=== PATIENT | male | born 1940 | race Caucasian/White ===

== ENCOUNTER 2021-04-19 17:18 | Observation (INO) | payer MEDICARE, OTHER ==
[2021-04-19] MEDS ORDERED: Sodium Chloride 0.9% 500 ML 500 ML IV ONE ×2 (17:53→18:29)
--- NOTE | 2021-04-19 17:58 | ERPHSYRPT ---
- History of Present Illness Time Seen by Provider: 04/19/21 17:26 Historian: patient Exam Limitations: no limitations Patient Subjective Stated Complaint: pt here for pain to lower left abd since last night. no fever, no difficlutly with B/B Triage Nursing Assessment: pt walked in, resp easy, skin w/d/p, face mask in place, no edema noted abd large , soft Physician History: 80 years old male presented in the ER with chief complaint of lower abdominal pain sudden onset this morning, across both sides, aggravated with certain position, lasted for couple of hours and then started to improve but still have 3/10 intensity but now more localized in the left lower quadrant. Denies associated nausea vomiting or urinary symptoms. Denies diarrhea. Does have history of bilateral inguinal hernia surgeries. No fever or chills reported. Timing/Duration: today, constant, sudden, improved Activities at Onset: rest Quality: sharpness Abdominal Pain Onset Location: RLQ, LLQ, suprapubic Pain Radiation: no radiation Severity of Pain-Max: moderate Severity of Pain-Current: mild Modifying Factors: Worsens With: movement Associated Symptoms: denies symptoms Previous symptoms: no prior history Allergies/Adverse Reactions: erythromycin base [From Staticin] Adverse Reaction (Verified 04/19/21 17:35) ethyl alcohol [From Staticin] Adverse Reaction (Verified 04/19/21 17:35) Hx Tetanus, Diphtheria Vaccination/Date Given: No Hx Influenza Vaccination/Date Given: Yes Hx Pneumococcal Vaccination/Date Given: Yes Immunizations Up to Date: No Travel Risk - International Travel Have you traveled outside of the country in past 3 weeks: No - Coronavirus Screening Are you exhibiting any of the following symptoms?: No Close contact with a COVID-19 positive Pt in past 14-21 Days: No - Vaccine Status Have you recieved a Covid-19 vaccination: Yes Consulting Practice Manager: Moderna - Vaccination Dates Date of 2cond Vaccination (if applicable): nov - Review of Systems Constitutional: No Symptoms Eyes: No Symptoms Ears, Nose, & Throat: No Symptoms Respiratory: No Symptoms Cardiac: No Symptoms Abdominal/Gastrointestinal: Abdominal Pain Genitourinary Symptoms: No Symptoms Musculoskeletal: No Symptoms Skin: No Symptoms Neurological: No Symptoms Psychological: No Symptoms Endocrine: No Symptoms Hematologic/Lymphatic: No Symptoms Immunological/Allergic: No Symptoms - Past Medical History Pertinent Past Medical History: No Neurological History: No Pertinent History Cardiac History: Arrhythmia, Coronary Artery Disease, High Cholesterol, Hypertension Respiratory History: No Pertinent History Endocrine Medical History: No Pertinent History Musculoskeletal History: Arthritis Other Medical History: Stage 3 kidney disease. 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 - Past Surgical History Past Surgical History: Yes Neuro Surgical History: No Pertinent History Cardiac: Cardiac Catheterization Respiratory: No Pertinent History Gastrointestinal: Cholecystectomy, Hernia Repair Genitourinary: No Pertinent History Musculoskeletal: Other Male Surgical History: No Pertinent History - Social History Smoking Status: Never smoker Exposure to second hand smoke: No Drug Use: none Patient Lives Alone: Yes - Nursing Vital Signs Nursing Vital Signs: Initial Vital Signs Temperature 96.8 F 04/19/21 17:29 Pulse Rate 83 04/19/21 17:29 Respiratory Rate 18 04/19/21 17:29 Blood Pressure 162/78 04/19/21 17:29 O2 Sat by Pulse Oximetry 97 04/19/21 17:29 Pain Scale Pain Intensity 2 - Physical Exam General Appearance: no apparent distress, alert Eye Exam: eyes nml inspection Ears, Nose, Throat Exam: normal ENT inspection, pharynx normal Neck Exam: normal inspection, supple, full range of motion Respiratory Exam: normal breath sounds, lungs clear Cardiovascular Exam: regular rate/rhythm, normal heart sounds Gastrointestinal/Abdomen Exam: soft, normal bowel sounds, tenderness (Left lower quadrant/suprapubic/right lower quadrant with some guarding but no rebound tenderness.) Back Exam: normal inspection, normal range of motion Extremity Exam: normal inspection, normal range of motion Neurologic Exam: alert, oriented x 3, cooperative Skin Exam: normal color SpO2 Interpretation: normal SpO2: 97 O2 Delivery: Room Air Ordered Tests: Active Orders 24 hr Category Date Time Status IV Insertion STAT Care 04/19/21 17:52 Active NPO (ED) STAT Care 04/19/21 17:52 Active ABDOMEN AND PELVIS W CONTRAST [CT] Stat Exams 04/19/21 17:52 Taken CBC W DIFF Stat Lab 04/19/21 18:05 Completed CMP Stat Lab 04/19/21 18:05 Completed LIPASE Stat Lab 04/19/21 18:05 Completed Lactic Acid Stat Lab 04/19/21 18:15 Completed UA W/RFX UR CULTURE Stat Lab 04/19/21 19:25 Received Medication Summary Discontinued Medications Generic Name Dose Route Start Last Admin Trade Name Freq PRN Reason Stop Dose Admin Sodium Chloride 500 mls @ 500 mls/hr 04/19/21 17:53 04/19/21 19:46 Sodium Chloride 0.9% 500 Ml IV 04/19/21 18:52 Infused .Q1H ONE Infusion Sodium Chloride Confirm 04/19/21 18:29 Sodium Chloride 0.9% 500 Ml Administered 04/19/21 18:30 Dose 500 mls @ ud IV .STK-MED ONE Lab/Rad Data: Laboratory Result Diagrams 04/19/21 18:05 04/19/21 18:05 Laboratory Results 04/19/21 04/19/21 04/19/21 Range/Units 18:15 18:05 18:05 WBC 14.7 H (4.0-10.5) K/mm3 RBC 4.62 (4.1-5.6) M/mm3 Hgb 14.2 (12.5-18.0) gm/dl Hct 43.3 (42-50) % MCV 93.7 (78-100) fl MCH 30.7 (26-32) pg MCHC 32.8 (32-36) g/dl RDW 13.2 (11.5-14.0) % Plt Count 210 (150-450) K/mm3 MPV 10.2 (7.5-11.0) fl Gran % 72.0 H (36.0-66.0) % Eos # (Auto) 0.03 (0-0.5) Absolute Lymphs (auto) 2.35 (1.0-4.6) Absolute Monos (auto) 1.70 H (0.0-1.3) Lymphocytes % 16.0 L (24.0-44.0) % Monocytes % 11.6 (0.0-12.0) % Eosinophils % 0.2 (0.00-5.0) % Basophils % 0.2 (0.0-0.4) % Absolute Granulocytes 10.54 H (1.4-6.9) Basophils # 0.03 (0-0.4) Sodium 135 L (137-145) mmol/L Potassium 3.9 (3.5-5.1) mmol/L Chloride 101 (98-107) mmol/L Carbon Dioxide 23 (22-30) mmol/L Anion Gap 14.7 (5-15) MEQ/L BUN 22 H (9-20) mg/dL Creatinine 1.26 H (0.66-1.25) mg/dL Estimated GFR 58.8 ML/MIN Glucose 126 H (74-106) mg/dL Lactic Acid 1.2 (0.4-2.0) Calcium 9.0 (8.4-10.2) mg/dL Total Bilirubin 1.40 H (0.2-1.3) mg/dL AST 32 (17-59) U/L ALT 22 (0-50) U/L Alkaline Phosphatase 70 (38-126) U/L Serum Total Protein 7.3 (6.3-8.2) g/dL Albumin 4.2 (3.5-5.0) g/dL Lipase 75 (23-300) U/L - Progress Progress: improved, re-examined Progress Note: 04/19/21 19:49 80 years old is evaluated for lower abdominal pain. He is offered pain medication which he refused. Given a small fluid bolus, work-up showed white count of 14.7, chronic kidney disease. CT abdomen pelvis with contrast showed moderate proximal sigmoid diverticulitis without any abscess or perforation. Started on Levaquin and Flagyl. Discussed with Dr. Guerra and patient is being admitted. 04/19/21 19:50 Discussed with : Sujit Will see patient in: hospital (observation) Counseled pt/family regarding: lab results, diagnosis, rad results - Departure Departure Disposition: Observation Clinical Impression: Diverticulitis of sigmoid colon Condition: Stable Critical Care Time: No Referrals: SHAZIA BOO [Primary Care Provider] -
[2021-04-19 18:05] LABS: Absolute Neutrophil Ct (ANC) 10.54 (1.4-6.9); BASOPHIL % 0.2 % (0.0-0.4); Basophil (Absolute #) 0.03 (0-0.4); Eosinophil % 0.2 % (0.00-5.0); Eosinophil (Absolute #) 0.03 (0-0.5); Hematocrit 43.3 % (42-50); Hemoglobin 14.2 gm/dl (12.5-18.0); Lymphocyte (Absolute #) 2.35 (1.0-4.6); Mean Cell Volume 93.7 fl (78-100); Mean Corpuscular Hemoglobin 30.7 pg (26-32); Mean Corpuscular Hgb Concent. 32.8 g/dl (32-36); Mean Platelet Volume 10.2 fl (7.5-11.0); Monocytes % 11.6 % (0.0-12.0); Platelet Count 210 K/mm3 (150-450); Red Blood Count 4.62 M/mm3 (4.1-5.6); Red Cell Distribution Width 13.2 % (11.5-14.0); White Blood Count 14.7 K/mm3 (4.0-10.5)
[2021-04-19 18:13] LABS: ALBUMIN 4.2 g/dL (3.5-5.0); ANION GAP 14.7 MEQ/L (5-15); BILIRUBIN,TOTAL 1.4 mg/dL (0.2-1.3); Creatinine 1 1.26 mg/dL (0.66-1.25); EST GLOMERULAR FILTRATION RATE 58.8 ML/MIN; Potassium 3.9 mmol/L (3.5-5.1); Total Protein 7.3 g/dL (6.3-8.2)
[2021-04-19 19:48] LABS: Appearance CLEAR (CLEAR); Bilirubin NEGATIVE (NEGATIVE); Blood NEGATIVE Ery/ul (0-5); Glucose NEGATIVE (NEGATIVE); Ketones NEGATIVE (NEGATIVE); Leukocyte Esterase NEGATIVE (NEGATIVE); Nitrite NEGATIVE (NEGATIVE); Protein,Urine Dip NEGATIVE (Negative); Specific Gravity 1.027 (1.005-1.025); Urobilinogen NEGATIVE mg/dL (0-1)
[2021-04-19] MEDS ORDERED: Levofloxacin 500MG/100ML D5W 500 MG/100 ML BAG IV STA (19:48)
[2021-04-19] MEDS ORDERED: FLAGYL 500 MG IVPB 500 MG/100 ML BAG IV STA (19:48)
[2021-04-19] MEDS ORDERED: Levofloxacin 500MG/100ML D5W 500 MG/100 ML BAG IV ONE (19:54)
[2021-04-19] MEDS ORDERED: FLAGYL 500 MG IVPB 500 MG/100 ML BAG IV ONE (19:54)
[2021-04-19 20:46] LABS: Slide Review 1 YES
[2021-04-19] MEDS ORDERED: MORPHINE SULFATE 2 MG INJ IV PRN (23:54)
[2021-04-19] MEDS ORDERED: DUONEB 0.5-3 MG/3 ml Neb IH PRN (23:54)
[2021-04-19] MEDS ORDERED: TYLENOL 325 MG PO PRN (23:54)
[2021-04-19] MEDS ORDERED: Zofran 4 MG/2 ML VIAL IV PRN (23:54)
[2021-04-20] MEDS: Sodium Chloride 0.9% 1000 ML 1,000 ML IV SCH ×2 (01:29→21:38)
[2021-04-20] MEDS: FLAGYL 500 MG IVPB 500 MG/100 ML BAG IV SCH ×4 (01:30→18:06)
[2021-04-20 05:50] LABS: Absolute Neutrophil Ct (ANC) 6.94 (1.4-6.9); BASOPHIL % 0.1 % (0.0-0.4); Basophil (Absolute #) 0.01 (0-0.4); Eosinophil % 0.6 % (0.00-5.0); Eosinophil (Absolute #) 0.06 (0-0.5); Lymphocyte (Absolute #) 2.04 (1.0-4.6); Lymphocytes % 19.5 % (24.0-44.0); Mean Cell Volume 94.6 fl (78-100); Mean Corpuscular Hemoglobin 30.7 pg (26-32); Mean Corpuscular Hgb Concent. 32.5 g/dl (32-36); Mean Platelet Volume 10.3 fl (7.5-11.0); Monocyte (Absolute #) 1.39 (0.0-1.3); Monocytes % 13.3 % (0.0-12.0); Neutrophil % 66.5 % (36.0-66.0); Platelet Count 197 K/mm3 (150-450); Red Blood Count 4.23 M/mm3 (4.1-5.6); White Blood Count 10.4 K/mm3 (4.0-10.5)
[2021-04-20 06:22] LABS: ALBUMIN 3.6 g/dL (3.5-5.0); ALKALINE PHOSPHATASE 58 U/L (38-126); ANION GAP 12.8 MEQ/L (5-15); BLOOD UREA NITROGEN 19 mg/dL (9-20); CHLORIDE 103 mmol/L (98-107); Calcium 8.5 mg/dL (8.4-10.2); Carbon Dioxide 24 mmol/L (22-30); Creatinine 1 1.21 mg/dL (0.66-1.25); EST GLOMERULAR FILTRATION RATE > 60.0 ML/MIN; Glucose 99 mg/dL (74-106); Potassium 3.5 mmol/L (3.5-5.1); SGOT/AST 24 U/L (17-59); SGPT/ALT 19 U/L (0-50); SODIUM 136 mmol/L (137-145); Total Protein 6.5 g/dL (6.3-8.2)
[2021-04-20] MEDS ORDERED: Nitrostat 0.4 MG Tablet SL PRN (08:18)
[2021-04-20] MEDS ORDERED: MEDICATION INTERVENTION PO SCH (08:45)
--- NOTE | 2021-04-20 08:48 | XRAY ---
Indication: Abdomen pain. Multiple contiguous axial images obtained through the abdomen and pelvis using 80 cc Isovue 370 contrast. Comparison: None Lung bases demonstrates mild bilateral subsegmental atelectasis/scarring and tiny right lower lobe calcified granuloma. No infiltrate or effusion. Heart is not enlarged. Small hiatal hernia. Noncontrasted stomach and bowel loops appear nonobstructed. Normal appendix. Mild diffuse scattered colonic diverticulosis greatest in the descending and sigmoid colon. Proximal sigmoid colon demonstrates mild wall thickening with pericolonic stranding favoring acute diverticulitis. No free fluid/air. Previous cholecystectomy. Mild enlarged prostate gland impresses on the base of the bladder. A few bilateral renal cysts, largest left upper pole measuring 3 cm. Remaining liver, pancreas, spleen, adrenal glands, kidneys, ureters, and bladder are unremarkable. Mild scattered aortoiliac calcifications. No AAA or pathologic retroperitoneal lymphadenopathy. Osseous structures intact with osteopenia, mild/moderate multilevel thoracolumbar degenerative spondylosis, and minimal double curvature scoliosis. T12 segment demonstrates superior/inferior endplate concave deformities either remote fractures versus prominent Schmorl nodes. No ventral or inguinal hernias. Impression: 1. Scattered colonic diverticulosis with mild proximal sigmoid diverticulitis. No complications. 2. Incidental small hiatal hernia, bilateral renal cysts, enlarged prostate gland, and chronic bony findings.
[2021-04-20] MEDS: Ranexa 500 MG PO SCH ×2 (09:34→21:39)
[2021-04-20] MEDS: Vasotec 10 MG PO SCH (09:34)
[2021-04-20] MEDS: Toprol Xl 50 MG PO SCH (09:35)
[2021-04-20] MEDS: Flomax 0.4 MG PO SCH (09:35)
[2021-04-20] MEDS: Imdur 30 MG PO SCH (09:35)
[2021-04-20] MEDS: PROTONIX 40 MG IV IV SCH (09:36)
[2021-04-20] MEDS ORDERED: ENALAPRIL MALEATE 20 MG PO SCH (10:00)
[2021-04-20] MEDS ORDERED: PROPAFENONE HCL 150 MG PO SCH (10:00)
[2021-04-20] MEDS ORDERED: NON-FORMULARY ITEM (Rosuvastatin Calcium [Rosuvastatin Calcium] 5 MG) PO SCH (22:00)
[2021-04-20] MEDS ORDERED: Levofloxacin 500MG/100ML D5W 500 MG/100 ML BAG IV SCH (22:00)
[2021-04-20] MEDS ORDERED: Zocor 10MG PO SCH (22:00)
[2021-04-21] MEDS: FLAGYL 500 MG IVPB 500 MG/100 ML BAG IV SCH ×2 (01:26→05:11)
[2021-04-21 07:17] VITALS: BP 122/54; PULSE 70; O2SAT 96
[2021-04-21] MEDS: Flomax 0.4 MG PO SCH (08:44)
[2021-04-21] MEDS: Toprol Xl 50 MG PO SCH (08:45)
[2021-04-21] MEDS: Imdur 30 MG PO SCH (08:45)
[2021-04-21] MEDS: Ranexa 500 MG PO SCH (08:45)
[2021-04-21] MEDS: Vasotec 10 MG PO SCH (08:45)
[2021-04-21] MEDS: PROTONIX 40 MG IV IV SCH (08:46)
--- NOTE | 2021-04-21 12:08 | PCM.DS ---
Discharge Summary Date of Admission: 04/19/21 23:47 Admitting Physician: JONATHAN WEBER Primary Care Provider: SHAZIA MONTES Allergies Allergies erythromycin base [From Staticin] Adverse Reaction (Verified 04/19/21 17:35) ethyl alcohol [From Staticin] Adverse Reaction (Verified 04/19/21 17:35) Hospital Summary - Hospital Course Hospital Course: patient admitted with diverticulitis, treated with levaquin and flagyl. has done great, pain is resolved, he is tolerating po intake and has no complaints and is requesting to go home. no prior hx previously of similar. initially presented with pain of LLQ x [address] showed proximal sigmoid diverticulitis. - Vitals & Intake/Output Vital Signs: Vital Signs Temperature 97.9 F 04/21/21 07:12 Pulse Rate 70 04/21/21 07:12 Respiratory Rate 20 04/21/21 07:12 Blood Pressure 122/54 04/21/21 07:12 O2 Sat by Pulse Oximetry 96 04/21/21 07:12 Intake & Output: Intake & Output 04/19/21 04/20/21 04/21/21 04/22/21 11:59 11:59 11:59 11:59 Intake Total 800 2749 Output Total 1375 1200 Balance -575 1549 Weight 105.2 kg 107.1 kg - Lab Result Diagrams: 04/20/21 05:06 04/20/21 05:06 - Radiology Exams Ordered Rad Exams-Entire Visit: Radiology Procedures Category Date Time Status ABDOMEN AND PELVIS W CONTRAST [CT] Stat Exams 04/19/21 17:52 Completed - Procedures and Test Procedures and Tests throughout Hospitalization: Therapy Orders & Screens 04/20/21 01:46 Respiratory Therapy Assessment DAILY Comment: Diagnosis: Sigmoid diverticulitis Discharge Exam General Appearance: no apparent distress, alert Respiratory Exam: normal breath sounds, lungs clear, No respiratory distress Cardiovascular Exam: regular rate/rhythm, normal heart sounds Gastrointestinal/Abdomen Exam: soft, No tenderness, No mass Extremity Exam: normal inspection, normal range of motion Skin Exam: normal color, warm, dry Final Diagnosis/Problem List - Final Discharge Diagnosis/Problem (1) Diverticulitis of sigmoid colon Current Visit: Yes Status: Acute Assessment & Plan: home on levaquin and flagyl, Dr Montes is his pcp, advised to f/u 1 week Code(s): K57.32 - DVTRCLI OF LG INT W/O PERFORATION OR ABSCESS W/O BLEEDING - Discharge Disposition: Home, Self-Care Condition: Stable Prescriptions: New Metronidazole 500 mg [Flagyl 500 MG] 500 mg PO QID #28 tablet levoFLOXacin [Levofloxacin] 500 mg PO DAILY #7 tablet Continue Lysine HCl [l-Lysine] 1,000 mg PO DAILY Cholecalciferol (Vitamin D3) [Vitamin D3] 100 mcg PO DAILY Fluticasone Propionate [Flonase NASAL] 16 gm NS HS Multivitamin 1 each PO DAILY Diphenhydramine HCl 25 mg [Benadryl 25 mg Capsule] 25 mg PO Q4H PRN PRN PRN Reason: Allergies Acetaminophen 500 mg [Tylenol Extra Strength 500 mg] 1,000 mg PO Q8HPRN PRN PRN Reason: Pain Rosuvastatin Calcium 5 mg PO HS Metoprolol Succinate 50 mg [Toprol Xl 50 MG] 50 mg PO DAILY Ubidecarenone [Coq10] 100 mg PO DAILY Loratadine 10 mg [Claritin 10 mg] 10 mg PO BID Tamsulosin HCl 0.4 mg [Flomax 0.4 MG] 0.4 mg PO DAILY Enalapril Maleate [Vasotec] 20 mg PO DAILY Propafenone HCl 150 mg PO BID Ranolazine 500 MG [Ranexa 500 MG] 500 mg PO BID Isosorbide Mononitrate 30 mg [Imdur 30 MG] 30 mg PO DAILY Chlorthalidone 25 mg PO DAILY Aspirin 81 gm Chew [Baby Aspirin 81 mg Chew] 81 mg PO DAILY Nitroglycerin 0.4 mg Tablet [Nitrostat 0.4 MG Tablet] 0.4 mg SL Q5MIN PRN MR X 3 PRN PRN Reason: Chest Pain Follow up with: SHAZIA MONTES [Primary Care Provider] - 1 Week
== END 2021-04-21 12:55 | disposition home or self-care (01) ==
LOC: ED 17:18 → MED SURG 23:47
PROVIDERS: ADMIT Family Medicine; ATTEND Family Medicine
DX: K57.32 Diverticulitis of large intestine without perforation or abscess without bleeding (principal); R10.32 Left lower quadrant pain; R10.31 Right lower quadrant pain; I10 Essential (primary) hypertension; E78.00 Pure hypercholesterolemia, unspecified; Z86.79 Personal history of other diseases of the circulatory system; Z79.899 Other long term (current) drug therapy; Z20.828 Contact with and (suspected) exposure to other viral communicable diseases
CPT/HCPCS: 36000; 36415; 74177; 80053; 81001; 83605; 83690; 85025; 96360; 96365; 96367; 99285; G0378; U0003; J1956; A9270-GY

== ENCOUNTER 2024-10-08 19:20 | Emergency (ER) | payer MEDICARE, OTHER ==
--- NOTE | 2024-10-08 19:44 | ERPHSYRPT ---
- History of Present Illness Time Seen by Provider: 10/08/24 19:43 Historian: patient, family Exam Limitations: no limitations Physician History: This is a morbidly obese 84-year-old white male patient who was in a wheelchair on [employer] when he fell back hitting his left flank area and left upper quadrant causing him to have significant pain. Today the pain seemed to be worse with associated distention. He describes the pain as a "tightness" and crampy. He does not have shortness of breath. He has no chest pain. He has not had any nausea vomiting or diarrhea symptoms. Patient has a history of prostate issues, chronic renal disease, arrhythmia, hyperlipidemia, hypertension and peripheral neuropathy Timing/Duration: day(s) (2) Quality: cramping, tightness Abdominal Pain Onset Location: LUQ Pain Radiation: flank Severity of Pain-Max: moderate (Left side) Severity of Pain-Current: moderate Modifying Factors: Improves With: movement Associated Symptoms: denies symptoms Previous symptoms: no prior history, no recent treatment Allergies/Adverse Reactions: erythromycin base [From Staticin] Adverse Reaction (Verified 04/19/21 17:35) ethyl alcohol [From Staticin] Adverse Reaction (Verified 04/19/21 17:35) Home Medications: Acetaminophen 500 mg [Tylenol Extra Strength 500 mg] 1,000 mg PO Q8HPRN PRN 04/20/21 [History] Aspirin 81 gm Chew [Baby Aspirin 81 mg Chew] 81 mg PO DAILY 04/20/21 [History] Cholecalciferol (Vitamin D3) [Vitamin D3] 2,000 iu PO DAILY 04/20/21 [History] Diphenhydramine HCl 25 mg [Benadryl 25 mg Capsule] 25 mg PO Q4H PRN PRN 04/20/21 [History] Enalapril Maleate [Vasotec] 20 mg PO DAILY 04/20/21 [History] Fluticasone Propionate [Flonase NASAL] 16 gm NS HS 04/20/21 [History] Isosorbide Mononitrate 30 mg [Imdur 30 MG] 30 mg PO DAILY 04/20/21 [History] Multivitamin 1 each PO DAILY 04/20/21 [History] Nitroglycerin 0.4 mg Tablet [Nitrostat 0.4 MG Tablet] 0.4 mg SL Q5MIN PRN MR X 3 PRN 04/20/21 [History] Propafenone HCl 150 mg PO BID 04/20/21 [History] Ranolazine 500 MG [Ranexa 500 MG] 500 mg PO BID 04/20/21 [History] Rosuvastatin Calcium 5 mg PO HS 04/20/21 [History] Tamsulosin HCl 0.4 mg [Flomax 0.4 MG] 0.4 mg PO DAILY 04/20/21 [History] Ubidecarenone [Co Q-10] 100 mg PO DAILY 04/20/21 [History] Furosemide [Lasix] 20 mg PO DAILY 10/08/24 [History] Metoprolol Tartrate 50 mg [Lopressor 50 MG] 50 mg PO BID 10/08/24 [History] Hx Tetanus, Diphtheria Vaccination/Date Given: No Hx Influenza Vaccination/Date Given: Yes Hx Pneumococcal Vaccination/Date Given: Yes Travel Risk - International Travel Have you traveled outside of the country in past 3 weeks: No - Emerging Infectious Disease Are you exhibiting symptoms associated with any current EIDs: No - Review of Systems Constitutional: No Symptoms Eyes: No Symptoms Ears, Nose, & Throat: No Symptoms Respiratory: No Symptoms Cardiac: No Symptoms Abdominal/Gastrointestinal: Abdominal Pain (Left upper quadrant) Genitourinary Symptoms: Flank Pain (Left flank) Musculoskeletal: No Symptoms Skin: No Symptoms Neurological: No Symptoms Psychological: No Symptoms Endocrine: No Symptoms Hematologic/Lymphatic: No Symptoms Immunological/Allergic: No Symptoms All Other Systems: Reviewed and Negative - Past Medical History Pertinent Past Medical History: No Neurological History: Peripheral Neuropathy ENT History: Cataracts Cardiac History: Arrhythmia, Hypertension, Other Respiratory History: No Pertinent History Endocrine Medical History: No Pertinent History Musculoskeletal History: Fractures, Osteoarthritis GI Medical History: No Pertinent History History: Renal Disease Psycho-Social History: No Pertinent History Male Reproductive Disorders: No Pertinent History Other Medical History: PMH: HEART MONITOR CURRENTLY. PSH: L HIP ORIF, L TKA 3 YEARS AGO, TONSILLECTOMY, GALL BLADDER - Past Surgical History Past Surgical History: Yes Neuro Surgical History: No Pertinent History Cardiac: Cardiac Catheterization Respiratory: No Pertinent History Gastrointestinal: Cholecystectomy, Hernia Repair Genitourinary: No Pertinent History Musculoskeletal: Other Male Surgical History: No Pertinent History Other Surgical History: lt knee replacement - Social History Smoking Status: Never smoker Exposure to second hand smoke: No Drug Use: none Patient Lives Alone: Yes - Nursing Vital Signs Nursing Vital Signs: Initial Vital Signs Pulse Rate 71 10/08/24 20:01 Blood Pressure 165/85 10/08/24 20:01 O2 Sat by Pulse Oximetry 95 10/08/24 20:01 Pain Scale Pain Intensity 3 - Physical Exam General Appearance: no apparent distress, alert, anxiety, obese Eye Exam: PERRL/EOMI, eyes nml inspection Ears, Nose, Throat Exam: normal ENT inspection, moist mucous membranes Neck Exam: normal inspection, non-tender, supple, full range of motion Respiratory Exam: normal breath sounds, lungs clear, airway intact, No chest tenderness, No respiratory distress Cardiovascular Exam: regular rate/rhythm, normal heart sounds, normal peripheral pulses Gastrointestinal/Abdomen Exam: soft, normal bowel sounds, tenderness (Left upper quadrant), guarding (Left upper quadrant to palpation), No rebound Rectal Exam: not done Back Exam: normal inspection, normal range of motion, No CVA tenderness, No vertebral tenderness Extremity Exam: normal inspection, normal range of motion, pelvis stable Neurologic Exam: alert, oriented x 3, cooperative, mental health case manager II-XII nml as tested, normal mood/affect, sensation nml Skin Exam: normal color, warm, dry Lymphatic Exam: No adenopathy SpO2 Interpretation: normal O2 Delivery: Room Air - Course Nursing assessment & vital signs reviewed: Yes Ordered Tests: Active Orders 24 hr Category Date Time Status ABDOMEN AND PELVIS W/0 CONTRAS [CT] Stat Exams 10/08/24 20:15 Taken Medication Summary Generic Name Dose Route Start Last Admin Trade Name Freq PRN Reason Stop Dose Admin Oxycodone/Acetaminophen 2 tab 10/08/24 22:32 Oxycodone Hcl/Apap 5 Mg/325 Mg Tablet PO 10/08/24 22:33 SENT HOME W/ PATIENT STA Discontinued Medications Generic Name Dose Route Start Last Admin Trade Name Freq PRN Reason Stop Dose Admin Oxycodone/Acetaminophen 1 tab 10/08/24 22:31 Oxycodone Hcl/Apap 5 Mg/325 Mg Tablet PO 10/08/24 22:32 STAT STA - Progress Progress: unchanged Progress Note: 10/08/24 22:01 My medical decision making and the assignment of low to moderate complexity of this patient's medical issue today is based on review of the patient's past me dical history, review the patient's medication list, reviewed patient drug allergy list, history present illness and physical findings on examination. The workup in this patient will include a CT scan of the abdomen pelvis without contrast. Differential diagnosis includes was not limited to abdominal wall contusion/pain, acute intra-abdominal/pelvic abnormality. CT scan of the abdomen pelvis without contrast was compared to similar study dated 04/19/2021 and interpreted by the radiologist. I reviewed the impression. 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 There is an old left 7-12 rib fractures. There is diverticulosis. There is multilevel degenerative disc disease. No acute findings. Counseled pt/family regarding: diagnosis, need for follow-up, rad results Medical Desision Making - Independent Historian Additional History obtained from: Family - Diagnostic Testing Diagnostic test were ordered, analyzed, and reviewed by me: Yes Radiological Interpretation: Reviewed by me, Teleradiologist Report - Departure Departure Disposition: Home Clinical Impression: Fall with no significant injury, Abdominal wall contusion Condition: Stable Critical Care Time: No Referrals: SHAZIA BOO [Primary Care Provider] - Follow up/PCP as directed Additional Instructions: Alternate ice and heat to tender areas 3-4 times a day for the next 2 to 3 days. Take your other medications as prescribed. Call your primary care provider on 10/11/2024, to make arrangements for follow-up appointment to be seen in the next 3 to 5 days
[2024-10-08 20:12] VITALS: RESP 18; TEMP 97
[2024-10-08 22:04] VITALS: PULSE 70; O2SAT 97
[2024-10-08] MEDS: PERCOCET TABLET 5/325MG PO STA ×2 (22:46→22:47)
[2024-10-08] MEDS ORDERED: PERCOCET TABLET 5/325MG ONE (22:46)
[2024-10-08 23:00] VITALS: BP 162/84
--- NOTE | 2024-10-09 08:26 | XRAY ---
Indication: Pain following fall. Multiple contiguous axial images obtained through the abdomen and pelvis without contrast. Comparison: April 19, 2021 Lung bases again demonstrates scattered bilateral subsegmental atelectasis/scarring. No infiltrate, effusion, or pneumothorax. Heart borderline enlarged. Stable small hiatal hernia. Noncontrasted stomach and bowel loops appear nonobstructed with normal appendix. Again scattered colonic diverticulosis without diverticulitis. Stable bilateral renal cysts, enlarged prostate gland, and cholecystectomy. No free fluid/air. Remaining liver, pancreas, spleen, adrenal glands, kidneys, ureters, and bladder are unremarkable for noncontrast exam. Again mild scattered aortoiliac calcifications without AAA. 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 Stable osteopenia, multilevel degenerative spondylosis, T12 Schmorl nodes/remote endplate fractures, and minimal double curvature scoliosis. Impression: Chronic findings including atelectasis/scarring, hiatal hernia, colonic diverticulosis, bilateral renal cysts, arteriosclerotic disease, and chronic bony findings. Remaining CT abdomen/pelvis without contrast exam is negative.
== END 2024-10-08 23:11 | disposition home or self-care (01) ==
LOC: ED 19:20
DX: S30.1XXA Contusion of abdominal wall, initial encounter (principal); R07.81 Pleurodynia; W19.XXXA Unspecified fall, initial encounter
CPT/HCPCS: 74176; 99284; A9270-GY